=== PATIENT | male | born 1985 | race Caucasian/White ===

== ENCOUNTER 2021-01-11 10:33 | Emergency (ER) | payer OTHER ==
[~2021-01-11] VITALS: Ht 185.4 cm; Wt 142.4 kg
[2021-01-11 10:35] VITALS: BP 132/85
[2021-01-11] MEDS ORDERED: ACETAMINOPHEN 500 MG TABLET PO ONE ×2 (10:55→11:00)
[2021-01-11] MEDS ORDERED: ONDANSETRON ODT 4 MG TAB.RAPDIS ONE (10:55)
[2021-01-11] MEDS ORDERED: IV NORMAL SALINE 1,000ML 1,000 ML IV ONE (11:00)
[2021-01-11] MEDS ORDERED: ONDANSETRON ODT 4 MG TAB.RAPDIS PO ONE (11:00)
--- NOTE | 2021-01-11 11:22 | RAD ---
Exam performed: One view chest. Indication: Reason: soa / Spl. Instructions: / History: Date of Service: 01/11/2021 10:56 AM Comparison: None available. Single AP upright portable view chest findings: Cardiomediastinal silhouette is within limits of normal. No acute infiltrates, effusion or pneumotho rax is detected. The bony structures are normal. Impression: No acute cardiopulmonary process is detected. Electronically signed by: Debbie Baron MD (01/11/2021 11:20 AM) [id number]
[2021-01-11 11:36] LABS: BASO % 0 % (0-3); EOS % 0 % (0-3); HEMATOCRIT 44.6 % (39.0-53.0); LYMPH # 0.6 x10^3/uL (1.0-4.8); LYMPH % 21 % (24-48); MEAN CORPUSCULAR HEMOGLOBIN 29 pg (25-35); MEAN CORPUSCULAR HGB CONC 34 g/dL (31-37); MEAN CORPUSCULAR VOLUME 87 fL (79-100); MONO # 0.3 x10^3/uL (0.0-1.1); MONO % 11 % (0-9); NEUT # 1.9 x10^3uL (1.8-7.7); NEUT % 67 % (31-73); PLATELET COUNT 129 x10^3/uL (140-400); RED BLOOD COUNT 5.16 x10^6/uL (4.30-5.70); RED CELL DISTRIBUTION WIDTH 13.5 % (11.5-14.5); WHITE BLOOD COUNT 2.9 x10^3/uL (4.0-11.0)
--- NOTE | 2021-01-11 11:36 | PHYS DOC ---
Past History Past Medical History: GERD Past Surgical History: No Surgical History Alcohol Use: Rarely Drug Use: None General Adult EDM: Chief Complaint: FEVER HPI: HPI: 35-year-old male presents with cough, congestion, body aches, and fevers up to 104 for the last 3 or 4 days. The patient is not vaccinated for COVID-19. Review of Systems: Review of Systems: Constitutional: Fever, body aches. Eyes: Denies change in visual acuity HENT: Nasal congestion Respiratory: Cough with shortness of breath Cardiovascular: Denies chest pain or edema GI: Denies abdominal pain, nausea, vomiting, bloody stools or diarrhea : Denies dysuria Musculoskeletal: Denies back pain or joint pain Integument: Denies rash Neurologic: Denies headache, focal weakness or sensory changes Endocrine: Denies polyuria or polydipsia Lymphatic: Denies swollen glands Psychiatric: Denies depression or anxiety Current Medications: Current Meds: Current Medications Medications (Trade) Dose Ordered Sig/Libertad Start Time Stop Time Status Last Admin Dose Admin Acetaminophen (Tylenol) 500 mg STK-MED ONCE 01/11/21 10:55 01/11/21 10:55 DC Ondansetron HCl (Zofran Odt) 4 mg STK-MED ONCE 01/11/21 10:55 01/11/21 10:55 DC Sodium Chloride 1,000 ml @ 1,000 mls/hr 1X ONCE 01/11/21 11:00 01/11/21 11:59 01/11/21 11:14 1,000 MLS/HR Allergies: Allergies: Allergies Coded Allergies Type Severity Reaction Last Updated Verified No Known Drug Allergies 06/22/16 No Physical Exam: PE: Constitutional: Well developed, well nourished, morbidly obese, no acute distress, non-toxic appearance. [] HENT: Normocephalic, atraumatic, bilateral external ears normal, oropharynx moist, no oral exudates, nose normal. [] Eyes: PERRLA, EOMI, conjunctiva normal, no discharge. [] Neck: Normal range of motion, no tenderness, supple, no stridor. [] Cardiovascular: Heart rate 86, regular rhythm, no murmur [] Lungs & Thorax: Bilateral breath sounds clear to auscultation [] Abdomen: Bowel sounds normal, soft, no tenderness, no masses, no pulsatile masses. [] Skin: Warm, dry, no erythema, no rash. [] Back: No tenderness, no CVA tenderness. [] Extremities: No tenderness, no cyanosis, no clubbing, ROM intact, no edema. [] Neurologic: Alert and oriented X 3, normal motor function, normal sensory functi on, no focal deficits noted. [] Psychologic: Affect normal, judgement normal, mood normal. [] Current Patient Data: Vital Signs: Vital Signs Date Time Temp Pulse Resp B/P (MAP) Pulse Ox O2 Delivery O2 Flow Rate FiO2 01/11/21 10:35 102.5 90 132/85 (101) 98 Room Air 01/11/21 10:33 18 EKG: EKG: [] Radiology/Procedures: Radiology/Procedures: [] Impressions: Exam performed: One view chest. Indication: Reason: soa / Spl. Instructions: / History: Date of Service: 01/11/2021 10:56 AM Comparison: None available. Single AP upright portable view chest findings: Cardiomediastinal silhouette is within limits of normal. No acute infiltrates, effusion or pneumothorax is detected. The bony structures are normal. Impression: No acute cardiopulmonary process is detected. Electronically signed by: Debbie Baron MD (01/11/2021 11:20 AM) [id number] DICTATED AND SIGNED BY: DEBBIE BARON MD DATE: 01/11/21 1120 CC: JOSE FLORES DO; PCP,NO ~MTH0 0 Heart Score: C/O Chest Pain: N/A Risk Factors: Risk Factors: DM, Current or recent (<one month) smoker, HTN, HLP, family history of CAD, obesity. Risk Scores: Score 0 - 3: 2.5% MACE over next 6 weeks - Discharge Home Score 4 - 6: 20.3% MACE over next 6 weeks - Admit for Clinical Observation Score 7 - 10: 72.7% MACE over next 6 weeks - Early Invasive Strategies Course & Med Decision Making: Course & Med Decision Making Pertinent Labs and Imaging studies reviewed. (See chart for details) The patient's labs are unremarkable. His chest x-ray is negative for acute findings. His Covid test is pending. This is most likely COVID-19. He does not meet admission criteria at this time. I informed the patient that if his condition worsens he may need to return to the hospital. He is stable for discharge at this time. [] Jennyon Disclaimer: Dragon Disclaimer: This electronic medical record was generated, in whole or in part, using a voice recognition dictation system. Departure Departure: Impression: Primary Impression: COVID-19 Disposition: 01 HOME / SELF CARE / HOMELESS Condition: STABLE Referrals: PCP,NO (PCP) Additional Instructions: You have been tested for or diagnosed with COVID-19. It is an infection caused by a new type of coronavirus. COVID-19 will cause cold-like or mild flu symptoms in most. It can cause more severe symptoms like problems breathing in some. There is no treatment for COVID-19. The body will clear the infection over time. Self-care will help to ease discomfort. Steps to Take: Self-Care Rest as needed. Healthy habits may help you feel better. Steps include: Choose healthy foods including fruits and vegetables. Drink water throughout the day. Get plenty of sleep each night. If you smoke, try to quit. It may ease breathing. Avoid alcohol. Keep Others Healthy The virus can spread to others. Droplets are released every time you sneeze or cough. The droplets can get into the mouth, nose, or eyes of people near you and lead to infection. To lower the chances of spreading COVID-19 to others: Stay at home until your doctor has said it is safe to leave. If you tested positive this will mean staying isolated until both of the following are true: At least 7 days have passed since the start of illness. You are free of fever for at least 72 hours without the use of medicine. During this time: - Avoid public areas, events, or transportation. Do not return to work or school until your doctor has said it is safe to do so. - Call ahead if you need to go to a medical center. Let them know you may have COVID-19. It will help them guide you where to go. They may also ask you to wear a facemask when you come to the office. - If you call for emergency medical services, let them know you may have COVID- 19. While at home: - Try to avoid close contact with others. Stay about 6 feet away. - If possible, spend most of your time in a separate room from others. - Use a face mask if you will be in close contact with others such as sharing a room or vehicle. - Have someone wipe down common surfaces in the home. Use household ignition mechanic every day on areas like doorknobs, counters, or sinks. - Cough or sneeze into a tissue. Throw the tissue away right after use. If a tissue is not available, cough or sneeze into your elbow. - Wash your hands often. Wash them after sneezing or coughing. Use soap and water and wash for at least 20 seconds. Alcohol based hand gut cleaner can be used if soap and water is not available. - Do not prepare food for others. Avoid sharing personal items like forks, spoons, or toothbrushes. - Avoid close contact with pets while you are sick. There is no evidence of the virus passing to pets. This is a safety step until more is known about this virus. Isolation can be frustrating. Social interaction can help. Keep in touch with friends and family through phone and tech options. You can still interact with others in your home, just keep a safe distance of about 6 feet. Follow-up: Your doctors office will check in with you to see if there are any changes in your health. You may be asked to keep track of symptoms to share with them. They will also let you know when you are clear to be in public again. Problems to Look Out For: Contact your doctor if your recovery is not going as you expect. Get emergency care if you have problems such as: - Trouble breathing - Nonstop chest pain or pressure - Changes in awareness, confusion, or problems waking - Lips or face have bluish color - Worsening of symptoms If you think you have an emergency, call for emergency medical services right away. As taken from [facility] JOSE FLORES DO Jan 11, 2021 11:35
[2021-01-11 11:46] LABS: CALCIUM 8.7 mg/dL (8.5-10.1); CREATININE 1.2 mg/dL (0.7-1.3); GFR 68.5; POTASSIUM 3.8 mmol/L (3.5-5.1)
[2021-01-11 11:52] LABS: TOTAL BILIRUBIN 0.5 mg/dL (0.2-1.0); TOTAL PROTEIN 7.9 g/dL (6.4-8.2)
--- NOTE | 2021-01-12 11:40 | NUR ---
IP note: Pt tested POSITIVE for COVID19 on 01/11 in [facility] ED. Call to notify patient, lab results will be forwarded to the [facility] Health Department. Number listed in pt records, , is no longer in service.
--- NOTE | 2021-01-12 11:46 | NUR ---
Number listed for patient is a typo, . Results given to pt, who understands instructions to isolate from other household members, quarantine to home as per instructions given in ED. Pt wants note for work, advised that Health Department w/b notified and may email orders to quarantine.
== END 2021-01-11 13:02 | disposition home or self-care (01) ==
LOC: ER 10:33
DX: U07.1 COVID-19 (principal); K21.9 Gastro-esophageal reflux disease without esophagitis
CPT/HCPCS: 36415; 71045; 80053; 85025; 96360; 99284; J7030; Q0162; U0003

== ENCOUNTER 2021-01-14 20:49 | Inpatient (IN) | payer OTHER ==
[~2021-01-14] VITALS: Ht 188 cm; Wt 145.4 kg
--- NOTE | 2021-01-14 20:52 | PHYS DOC ---
Past History Past Medical History: GERD Past Surgical History: No Surgical History Alcohol Use: None Drug Use: None General Adult HPI: HPI: ".. I so short of breath.. I can't even walk across the room.. I hurt every where.. Even my skin hurts... they diagnosed me with COVID .. . I was here on .. but I am much worse now.. " Patient is a 35 year old male who presents with above hx and complaints of dyspnea, myalgia, arthralgia, fever and malaise. Patient diagnosed with Covid at that time. Patient had previous been offered Covid vaccination but had refused. Patient does not do flu vaccinations either. Patient for the last 6 days has been running fevers. Some fevers as high as 104 at home. Patient has continued to run fevers. Has had increased shortness of breath. Patient was seen in our ER on 01/11 2021 . Patient tonight is hypoxic with any activity tonight. Pt. having persistent tachycardia. It was noted on his x-ray of 01/11/2021 he had no significant findings. No infiltrates no effusions as compared to x-ray tonight with extensive patchy infiltrates. The pt. had no recent travel. 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 No significant ill contacts. No history immunosuppression. Review of Systems: Review of Systems: Constitutional: Complains of fever or chills Eyes: Denies change in visual acuity HENT: Denies nasal congestion or sore throat Respiratory: Complains of nonproductive cough or shortness of breath Cardiovascular: Denies chest pain or edema GI: Denies abdominal pain, nausea, vomiting, bloody stools or diarrhea : Denies dysuria Musculoskeletal: Complains of generalized myalgia and arthralgia Integument: Denies rash Neurologic: Denies headache, focal weakness or sensory changes Endocrine: Denies polyuria or polydipsia Lymphatic: Denies swollen glands Psychiatric: Denies depression or anxiety Family History: Family History: Noncontributory to presentation Current Medications: Current Meds: See nursing for home meds Allergies: Allergies: Allergies Coded Allergies Type Severity Reaction Last Updated Verified No Known Drug Allergies 06/22/16 No Physical Exam: PE: Constitutional: in acute distress, ill in appearance. [] HENT: Normocephalic, atraumatic, bilateral external ears normal, oropharynx moist, no oral exudates, nose normal. [] Eyes: PERRLA, EOMI, conjunctiva normal, no discharge. [] Neck: Normal range of motion, no tenderness, supple, no stridor. [] Cardiovascular: Tachycardia heart rate regular rhythm, no murmur []. Bedside monitor shows sinus tachycardia Lungs & Thorax: Bilateral breath sounds equal at apex with scattered wheezing, rhonchi and crackles throughout on auscultation [] Abdomen: Bowel sounds normal, soft, no tenderness, no masses, no pulsatile masses. Obese. Skin: Warm, diaphoretic, no erythema, no rash. [] Back: No tenderness, no CVA tenderness. [] Extremities: No tenderness, no cyanosis, no clubbing, ROM intact, no edema. Cording appreciated Neurologic: Alert and oriented X 3, normal motor function, normal sensory function, no focal deficits noted. [] Psychologic: Affect anxious, judgement normal, mood normal. [] EKG: EKG: My interpretation EKG shows a sinus rhythm at 94 bpm. There is a atypical T wave strain pattern . But no findings of acute STEMI or contralateral changes. [] Radiology/Procedures: Radiology/Procedures: [][place] [address] IMAGING REPORT Signed PATIENT: YESI MC ACCOUNT: [id number] : 1985 LOCATION: ER AGE: 35 SEX: M EXAM STATUS: REG ER ORD. PHYSICIAN: TANO LANDIN MD REASON: OMNI 350,100ML IV.Dyspnea PROCEDURE: CT ANGIOGRAPHY CHEST Exam: CT of chest with contrast INDICATION: Dyspnea TECHNIQUE: Sequential axial images through the chest obtained following the administration of 100 mL of Omni 350 IV contrast. Sagittal and coronal reformatted images were reconstructed from the axial data and reviewed. 3-D reformatted images were reconstructed from the axial data and reviewed. Exposure: One or more of the following in the visualized dose reduction techniques were utilized for this examination: 1. Automated exposure control 2. Adjustment of the MA and/or KV according to patient size 3. Use of iterative of reconstructive technique Comparisons: Most x-ray same day FINDINGS: Utilized portions of the thyroid are unremarkable. No enlarged mediastinal lymph nodes are identified. Heart size is normal. No pericardial effusion. Thoracic aorta has a normal course and caliber. Pulmonary artery is not enlarged. No pulmonary embolus identified within the main, lobar or segmental pulmonary arteries. Airways are patent. There is patchy areas of consolidative changes groundglass opacity noted diffusely throughout the lungs. No pneumothorax. Pleural effusion or thickening. Diffuse hepatic steatosis. No suspicious osseous lesions or acute fractures. IMPRESSION: 1. No pulmonary embolus identified within the main, lobar or segmental pulmonary arteries. 2. Extensive patchy bilateral ground glass opacity favored to be infectious or inflammatory in etiology. Correlate for atypical/viral causes such as Covid. Electronically signed by: Apolinar Hoyos MD (01/14/2021 10:53 PM) [facility] DICTATED AND SIGNED BY: APOLINAR HOYOS MD DATE: 01/14/212249 CC: TANO LANDIN MD; PCP,NO ~MTH0 [address] [place] [address] IMAGING REPORT Signed PATIENT: YESI MC ACCOUNT: [id number] : 1985 LOCATION: ER AGE: 35 SEX: M EXAM STATUS: PRE ER ORD. PHYSICIAN: TANO LANDIN MD REASON: COVID DX.SOB,CHEST PAIN,FEVER PROCEDURE: PORTABLE CHEST 1V AP chest. HISTORY: Short of breath, chest pain, fever, Covid-19 AP view was taken of the chest. There are hazy bilateral infiltrates consistent with Covid-19 pneumonia. There is no pleural effusion. Heart is normal in size. There has been a worsening pattern compared to the study from January 11. IMPRESSION: 1. Bilateral infiltrates consistent with Covid-19 pneumonia. Electronically signed by: Harley Starkey MD (01/14/2021 9:28 PM) [facility] DICTATED AND SIGNED BY: HARLEY STARKEY MD DATE: 01/14/212126 CC: TANO LANDIN MD; PCP,NO ~MTH0 0 Heart Score: C/O Chest Pain: Yes HEART Score for Chest Pain: HEART Score for Chest Pain Response (Comments) Value History Slighlty/Non-Suspicious 0 ECG Normal 0 Age < 45 0 Risk Factors 1 or 2 Risk Factors 1 Troponin < Normal Limit 0 Total 1 Risk Factors: Risk Factors: DM, Current or recent (<one month) smoker, HTN, HLP, family history of CAD, obesity. Risk Scores: Score 0 - 3: 2.5% MACE over next 6 weeks - Discharge Home Score 4 - 6: 20.3% MACE over next 6 weeks - Admit for Clinical Observation Score 7 - 10: 72.7% MACE over next 6 weeks - Early Invasive Strategies Course & Med Decision Making: Course & Med Decision Making Pertinent Labs and Imaging studies reviewed. (See chart for details) With note patient desatted with very little activity. ABG on room air showed a 7.461 pH, CO2 38.8. O2 is 53, and bicarb is 27.6. Discussed presentation, testing and treatment plan with . Advised admit to his service on oxygen on a medical bed.. Impression: 1. COVID + with bilateral viral pneumonia 2. Respiratory failure 3. Hypoxia 4. Leukopenia at 2 .0 5. Thrombocytopenia=91 6. Mild hypokalemia 3.3 7. Elevated CK 357 with normal troponin 8. Elevated D-dimer 0.62 [] Dragon Disclaimer: Dragon Disclaimer: This electronic medical record was generated, in whole or in part, using a voice recognition dictation system. Departure Departure: Referrals: PCP,NO (PCP) Dragon Disclaimer This chart was dictated in whole or in part using Voice Recognition software in a busy, high-work load, and often noisy Emergency Department environment. It may contain unintended and wholly unrecognized errors or omissions. Dragon Disclaimer This chart was dictated in whole or in part using Voice Recognition software in a busy, high-work load, and often noisy Emergency Department environment. It may contain unintended and wholly unrecognized errors or omissions. TANO LANDIN MD Jan 14, 2021 20:51
[2021-01-14] MEDS ORDERED: ALBUTEROL SULFATE 8GM INHALER. INH ONE (21:30)
[2021-01-14] MEDS ORDERED: AZITHROMYCIN 250 MG TABLET. PO ONE (21:30)
--- NOTE | 2021-01-14 21:31 | RAD ---
AP chest. HISTORY: Short of breath, chest pain, fever, Covid-19 AP view was taken of the chest. There are hazy bilateral infiltrates consistent with Covid-19 pneumon ia. There is no pleural effusion. Heart is normal in size. There has been a worsening pattern compare d to the study from January 11. IMPRESSION: 1. Bilateral infiltrates consistent with Covid-19 pneumonia. Electronically signed by: Harley Starkey MD (01/14/2021 9:28 PM) [facility]
[2021-01-14] MEDS ORDERED: IOHEXOL 350 MG/ML 100 ML VIAL. IV ONE (22:00)
[2021-01-14 22:08] LABS: BGAS PH 7.43 (7.35-7.46)
[2021-01-14] MEDS: IV RINGERS SOLUTION,LACTATED 1,000 ML IV SCH (22:31)
[2021-01-14 22:35] LABS: BASO % 0 % (0-3); EOS % 0 % (0-3); HEMATOCRIT 40.1 % (39.0-53.0); HEMOGLOBIN 13.6 g/dL (13.0-17.5); LYMPH # 0.5 x10^3/uL (1.0-4.8); LYMPH % 25 % (24-48); MEAN CORPUSCULAR HEMOGLOBIN 29 pg (25-35); MEAN CORPUSCULAR HGB CONC 34 g/dL (31-37); MEAN CORPUSCULAR VOLUME 85 fL (79-100); MONO # 0.1 x10^3/uL (0.0-1.1); MONO % 5 % (0-9); NEUT # 1.4 x10^3uL (1.8-7.7); NEUT % 70 % (31-73); PLATELET COUNT 91 x10^3/uL (140-400); RED BLOOD COUNT 4.73 x10^6/uL (4.30-5.70); RED CELL DISTRIBUTION WIDTH 13.3 % (11.5-14.5)
[2021-01-14 22:40] LABS: CALCIUM 7.9 mg/dL (8.5-10.1); GFR 84.5; POTASSIUM 3.3 mmol/L (3.5-5.1)
[2021-01-14] MEDS ORDERED: APIXABAN 5 MG TABLET. PO STA (22:50)
[2021-01-14 22:53] LABS: ALBUMIN 3.3 g/dL (3.4-5.0); DIRECT BILIRUBIN 0.2 mg/dL (0.0-0.2); TOTAL BILIRUBIN 0.4 mg/dL (0.2-1.0); TOTAL PROTEIN 6.6 g/dL (6.4-8.2)
--- NOTE | 2021-01-14 22:56 | RAD ---
Exam: CT of chest with contrast INDICATION: Dyspnea TECHNIQUE: Sequential axial images through the chest obtained following the administration of 100 mL of Omni 350 IV contrast. Sagittal and coronal reformatted images were reconstructed from the axial da ta and reviewed. 3-D reformatted images were reconstructed from the axial data and reviewed. Exposure: One or more of the following in the visualized dose reduction techniques were utilized for this examination: 1. Automated exposure control 2. Adjustment of the MA and/or KV according to patient size 3. Use of iterative of reconstructive technique Comparisons: Most x-ray same day FINDINGS: Utilized portions of the thyroid are unremarkable. No enlarged mediastinal lymph nodes are identified . Heart size is normal. No pericardial effusion. Thoracic aorta has a normal course and caliber. Pulmon humble artery is not enlarged. No pulmonary embolus identified within the main, lobar or segmental pulmo nary arteries. Airways are patent. There is patchy areas of consolidative changes groundglass opacity noted diffuse ly throughout the lungs. No pneumothorax. Pleural effusion or thickening. Diffuse hepatic steatosis. No suspicious osseous lesions or acute fractures. IMPRESSION: 1. No pulmonary embolus identified within the main, lobar or segmental pulmonary arteries. 2. Extensive patchy bilateral ground glass opacity favored to be infectious or inflammatory in etiol ogy. Correlate for atypical/viral causes such as Covid. Electronically signed by: Apolinar Maciel MD (01/14/2021 10:53 PM) [facility]
[2021-01-14 23:00] LABS: BARBITURATES NEG (NEG); BENZODIAZEPINES NEG (NEG); CANNABINOIDS NEG (NEG); COCAINE NEG (NEG); METHADONE NEG (NEG); OPIATES NEG (NEG); PHENCYCLIDINE NEG (NEG)
[2021-01-14 23:02] LABS: % BANDS 6 % (0-9); % LYMPHS 25 % (24-48); % MONOS 4 % (0-10); % SEGS 65 % (35-66)
[2021-01-14 23:03] LABS: PLT ESTIMATE DECREASED (ADEQUATE)
[2021-01-14 23:05] LABS: BACTERIA,URINE 0 /HPF (0-FEW); BILIRUBIN,URINE NEG (NEG); CLARITY,URINE CLEAR; COLOR,URINE YELLOW; GLUCOSE,URINE NEG (NEG); NITRITE,URINE NEG (NEG); RBC,URINE OCC /HPF (0-2); UROBILINOGEN,URINE 0.2 mg/dL (0.2 mg/dL); WBC,URINE OCC /HPF (0-4)
[2021-01-14 23:06] LABS: AMPHETAMINE/METHAMPHETAMINE NEG (NEG)
[2021-01-15] VITALS (7 sets, daily range): BP systolic 110–140; BP diastolic 74–83
[2021-01-15] MEDS ORDERED: POTASSIUM CHLORIDE 10 MEQ TABLET.ER. PO ONE (00:15)
[2021-01-15] MEDS ORDERED: ACETAMINOPHEN 325 MG TABLET PO PRN (00:15)
[2021-01-15] MEDS ORDERED: ONDANSETRON PF 4 MG/2 ML VIAL. IVP ONE (00:15)
[2021-01-15] MEDS ORDERED: ONDANSETRON PF 4 MG/2 ML VIAL. IVP PRN (00:15)
[2021-01-15] MEDS ORDERED: IBUPROFEN 400 MG TABLET. PO PRN (00:30)
[2021-01-15] MEDS: IV RINGERS SOLUTION,LACTATED 1,000 ML IV SCH (03:10)
[2021-01-15] MEDS ORDERED: FAMO-63 PO (03:33)
--- NOTE | 2021-01-15 07:10 | EKG ---
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
[2021-01-15] MEDS: ALBUTEROL SULFATE 8GM INHALER. INH SCH ×4 (07:39→20:56)
[2021-01-15] MEDS: APIXABAN 5 MG TABLET. PO SCH ×2 (07:39→20:57)
[2021-01-15] MEDS ORDERED: FAMOTIDINE 20 MG TABLET PO SCH (10:00)
[2021-01-15] MEDS ORDERED: LIDO:MAALOX 1:1 20 ML SINGLE DOSE. PO ONE (10:15)
--- NOTE | 2021-01-15 13:10 | HP ---
ADMIT DATE: 01/15/2021 ATTENDING PHYSICIAN: Dr. Noyola. CHIEF COMPLAINT: Shortness of breath. HISTORY OF PRESENT ILLNESS: The patient is a 35-year-old gentleman with documented coronavirus infection. He has been seen in the ED several times. He has significant dyspnea with exertion, hypoxemia, myalgias. He is not feeling well. Temperature has been running high as 104.0 degrees Fahrenheit at home. In the ED, a CT of the chest demonstrated bibasilar infiltrates consistent with atypical pneumonia. He is hypoxemic, supplemental oxygen in the form of 3 liters nasal cannula had been administered to maintain saturations. He is admitted for further treatment and evaluation. PAST MEDICAL HISTORY: Significant for gastroesophageal reflux disease. PAST SURGICAL HISTORY: No surgical history. SOCIAL HISTORY: He used to drink heavily. He is not drinking now. He is a nonsmoker. ALLERGIES: He has no known drug allergies. CURRENT MEDICATIONS: Pepcid only. In the ED, he was given apixaban and fluids. FAMILY HISTORY: Father of a stroke at age 67. Mom still alive in her mid 50s. REVIEW OF SYSTEMS: Significant for the myalgias, fevers. Appetite has been fair. All other systems reviewed and turned to be negative. PHYSICAL EXAMINATION: GENERAL: When I saw him, this is a pleasant young male, well developed. INITIAL VITAL SIGNS: Showed a blood pressure 115/78 mmHg, pulse was 80 and regular, temperature 100.7 degrees Fahrenheit and his oxygen saturation 99% on 2 liters by nasal cannula. HEENT: Head is without trauma. Pupils are reactive. Sclerae nonicteric. Oropharynx is clear. NECK: Supple, no bruits. LUNGS: Otherwise clear. He has minimal rhonchi at the bases. CARDIOVASCULAR: Showed distant heart tones. No gallops. ABDOMEN: Soft. EXTREMITIES: Without edema. NEUROLOGIC FINDINGS: Focally intact. Speech is fluent. SKIN: Warm and dry. PERTINENT LABORATORY STUDIES: His cardiac enzymes are negative for coronary ischemia. Electrolytes: Sodium 136, potassium 3.3 mEq, nonfasting blood sugar 114. Hemoglobin is 13.6 g/dL with a white count of 2000. CT of the chest as noted. ASSESSMENT: 1. A 35-year-old gentleman with bibasilar pneumonia consistent with coronavirus infection. 2. Hypoxemia requiring supplemental oxygen. 3. Acute respiratory failure. 4. Leukopenia. 5. Gastroesophageal reflux disease. PLAN: 1. Admit to the inpatient unit. 2. Supplemental oxygen. 3. Empiric Solu-Medrol. 4. Continue Eliquis started for DVT prophylaxis. 5. Advance diet as tolerated. MITZI/DALTON DR: MITZI/phil TID: [id number]
[2021-01-15] MEDS: methylPREDNISolone SOD SUCC PF 40 MG/ML VIAL. IV SCH ×2 (13:51→20:57)
[2021-01-15] MEDS: FAMOTIDINE 20 MG TABLET PO SCH (17:00)
[2021-01-16 02:10] VITALS: BP 120/85
[2021-01-16 04:50] VITALS: BP 123/89
[2021-01-16] MEDS: FAMOTIDINE 20 MG TABLET PO SCH (05:06)
[2021-01-16 05:30] VITALS: BP 121/90
[2021-01-16 06:11] LABS: BASO % 0 % (0-3); EOS % 0 % (0-3); HEMATOCRIT 40.9 % (39.0-53.0); HEMOGLOBIN 13.8 g/dL (13.0-17.5); LYMPH # 0.4 x10^3/uL (1.0-4.8); LYMPH % 25 % (24-48); MEAN CORPUSCULAR HEMOGLOBIN 29 pg (25-35); MEAN CORPUSCULAR HGB CONC 34 g/dL (31-37); MEAN CORPUSCULAR VOLUME 87 fL (79-100); MONO # 0.1 x10^3/uL (0.0-1.1); MONO % 6 % (0-9); NEUT # 1.1 x10^3uL (1.8-7.7); NEUT % 69 % (31-73); PLATELET COUNT 107 x10^3/uL (140-400); RED BLOOD COUNT 4.72 x10^6/uL (4.30-5.70); RED CELL DISTRIBUTION WIDTH 13.7 % (11.5-14.5)
[2021-01-16 06:15] LABS: WHITE BLOOD COUNT 1.6 x10^3/uL (4.0-11.0)
[2021-01-16 06:16] LABS: CALCIUM 8.6 mg/dL (8.5-10.1); CREATININE 0.9 mg/dL (0.7-1.3); GFR 95.5; POTASSIUM 4.2 mmol/L (3.5-5.1)
[2021-01-16] MEDS ORDERED: REMDESIVIR LOAD in IV NORMAL SALINE 250ML TV IV ONE (07:30)
[2021-01-16 08:14] VITALS: BP 119/86
[2021-01-16] MEDS: ALBUTEROL SULFATE 8GM INHALER. INH SCH (09:00)
[2021-01-16] MEDS: APIXABAN 5 MG TABLET. PO SCH (09:02)
[2021-01-16] MEDS: methylPREDNISolone SOD SUCC PF 40 MG/ML VIAL. IV SCH (09:02)
[2021-01-16 09:45] VITALS: BP 124/82
--- NOTE | 2021-01-16 09:47 | RAD ---
EXAMINATION: XR CHEST 1V CLINICAL HISTORY: +Covid, increase 02 requirements TECHNIQUE: XR CHEST 1V COMPARISON: 01/14/2021 FINDINGS/ IMPRESSION: No evidence of significant interval change when accounting for differences in patient positioning and imaging technique. Persistent pulmonary hypoexpansion and bilateral patchy airspace disease, compatible with viral pneum onia. Electronically signed by: Renato Mac DO (01/16/2021 9:44 AM) [id number]
[2021-01-16 11:13] VITALS: BP 124/82
--- NOTE | 2021-01-16 18:06 | DS ---
DATE OF DISCHARGE: 01/16/2021 ATTENDING PHYSICIAN: Dr. Noyola. FINAL DISCHARGE DIAGNOSES: 1. Bilateral COVID, coronavirus pneumonia. 2. Acute hypoxemic respiratory failure. 3. Leukopenia. 4. Gastroesophageal reflux disease. HISTORY AND PHYSICAL: The patient is a 35-year-old gentleman admitted through the ED with increasing shortness of breath, cough, congestion, fevers and evidence of coronavirus infection. CT initially showed patchy infiltrates in both lower lobes. PHYSICAL EXAMINATION: Please see the dictated note. PERTINENT LABORATORY AND X-RAY STUDIES: White count on admission was 2000, repeated was 1600. Hemoglobin 13.8 g/dL. Chemistry panel: BUN and creatinine were normal. Nonfasting blood sugar 154. Cardiac enzymes were negative. TSH was normal. Chest x-ray and CT as noted. COURSE IN THE HOSPITAL: The patient was admitted. He was started on supplemental oxygen along with Solu-Medrol and Eliquis for blood thinners. On the day of admission, he required 3 liters of oxygen by nasal cannula, maintained saturations 90%, by the second hospital day, went up to 7 liters by nasal cannula, and by the third day, we had an increased supplemental oxygen to 15 liters by high-flow oxygen on a nonrebreather mask. The patient was still symptomatic. He has very little reserve. He was not dyspneic as long as he was not doing anything. Because of the increased oxygen requirements, followup x-ray was done which showed no changes. It was lagging the clinical response. Therefore, I got a hold of the hospitalist service at [facility]. Dr. Chaidez will be the hospitalist. Arrangements were made, and I spoke with the patient. Patient be transferred to [facility] to their ICU. Tentatively, right now, he is stable on the high flow oxygen. If he gets worse, then we are considering intubation, he is not at that point yet. So, on the third hospital day in the morning, arrangements were made for transfer to [facility] to their ICU with a diagnosis of COVID pneumonia bilaterally and respiratory failure. His discharge meds include remdesivir, unfortunately we had to go through the protocol, he had not even received his first dose yet; Solu-Medrol 60 mg IV b.i.d.; albuterol as needed; Pepcid 20 mg daily; Eliquis 5 mg b.i.d. His prognosis is guarded. The patient was then discharged from our hospital to higher level of care at [facility] to their hospitalist service, Dr. Chaidez. Total discharge time spent 38 minutes. MITZI/CASIE/JHON DR: MITZI/phil TID: [id number]
[2021-01-17] MEDS ORDERED: REMDESIVIR 100mg in NORMAL SALINE 250ML X 4 DAYS IV SCH (08:00)
== END 2021-01-16 11:14 | disposition short-term general hospital (02) | DRG 177 ==
LOC: ER 20:49 → ICU 01-15 00:06
PROVIDERS: ADMIT Hospitalist; ATTEND Hospitalist
DX: U07.1 COVID-19 (principal); J12.82 Pneumonia due to coronavirus disease 2019; J96.01 Acute respiratory failure with hypoxia; D69.6 Thrombocytopenia, unspecified; D72.819 Decreased white blood cell count, unspecified; E87.6 Hypokalemia; K21.9 Gastro-esophageal reflux disease without esophagitis; Z82.3 Family history of stroke
CPT/HCPCS: 36415; 36600; 71045; 71275; 80048; 80076; 80307; 81001; 82550; 82803; 83605; 83735; 83880; 84443; 84484; 85007; 85025; 85379; 87040; 93005; 94640; 94660; 96374; G0238; J2405; J2920; J7120; Q9967; 94664; 99285-25